=== PATIENT | female | born 1995 | race Caucasian/White ===

== ENCOUNTER 2017-08-17 23:05 | Outpatient (CLI) | payer OTHER | END 2017-08-18 03:13 | disposition home or self-care (01) | LOC: OBT 23:05 → L-D 23:05 | DX: O62.9 Abnormality of forces of labor, unspecified (principal); Z3A.26 26 weeks gestation of pregnancy | CPT/HCPCS: 76817; 76818 ==

== ENCOUNTER 2017-10-14 17:38 | Inpatient (IN) | payer MEDICAID, OTHER ==
[2017-10-14] MEDS ORDERED: IBUPROFEN 600 MG TAB PO (18:30)
[2017-10-14] MEDS ORDERED: METHYLERGONOVINE 0.2 MG INJ IM (18:30)
[2017-10-14] MEDS ORDERED: CARBOPROST 250 MCG INJ IM (18:30)
[2017-10-14] MEDS ORDERED: OXYTOCIN 30 UNITS/LR 500 ML IV ×3 (18:30)
[2017-10-14] MEDS ORDERED: LIDOCAINE 1% (MPF) 30 ML INJ INJ (18:30)
[2017-10-14] MEDS ORDERED: MISOPROSTOL 200 MCG TAB PR (18:30)
[2017-10-14] MEDS ORDERED: BUTORPHANOL 2 MG INJ IV (18:30)
[2017-10-14] MEDS: LACTATED RINGER'S 1,000 ML IV (18:35)
[2017-10-14] MEDS: AMPICILLIN 2 GM/NS (PMX) 100 ML IV (18:37)
[2017-10-14 18:46] LABS: ADD MAN DIFF? NO
[2017-10-14 18:49] LABS: WHITE BLOOD COUNT 8.7 10^3/ul (4.8-10.8)
[2017-10-14 18:49] LABS: BASOPHILS % 0.2 % (0.0-2.0); EOSINOPHILS # 0.1 10^3/ul (0.0-0.5); HEMATOCRIT 29.9 % (37.0-47.0); HEMOGLOBIN 9.8 g/dl (12.0-16.0); LYMPHOCYTES # 2.3 10^3/ul (0.8-2.9); LYMPHOCYTES % 26.8 % (15.0-51.0); MEAN CORPUSCULAR HEMOGLOBIN 27.7 pg (29.0-33.0); MEAN CORPUSCULAR HGB CONC 32.8 g/dl (32.0-37.0); MEAN CORPUSCULAR VOLUME 84.5 fl (82.0-101.0); MEAN PLATELET VOLUME 11.7 fl (7.4-10.4); MONOCYTE # 0.4 10^3/ul (0.3-0.9); MONOCYTES % 4.9 % (0.0-11.0); NEUTROPHIL # 5.8 10^3/ul (1.6-7.5); NEUTROPHILS % 66.6 % (39.0-77.0); PLATELET COUNT 230 10^3/UL (140-415); RED BLOOD COUNT 3.54 10^6/ul (4.20-5.40)
[2017-10-14 19:09] LABS: INR 0.96; PARTIAL THROMBOPLASTIN TIME 24.8 Sec (25.0-35.0); PROTIME 12.9 Sec (11.9-14.9)
[2017-10-14 20:07] LABS: HEPATITIS B SURFACE ANTIGEN NEGATIVE (NEGATIVE)
[2017-10-14] MEDS: AMPICILLIN 1 GM/NS (PMX) 50 ML IV (23:29)
[2017-10-15] MEDS: LACTATED RINGER'S 1,000 ML IV ×3 (03:03→18:26)
[2017-10-15] MEDS: AMPICILLIN 1 GM/NS (PMX) 50 ML IV ×6 (03:03→22:04)
[2017-10-15] MEDS: BETAMET NA PHOS/AC(6 MG/ML) 5ML INJ IM (10:35)
[2017-10-15] MEDS: MAGNESIUM SULFATE 4 GM/100 ML 100 ML IV (10:38)
[2017-10-15] MEDS: MAGNESIUM SULFATE 20 GM/500 ML 500 ML IV ×2 (11:22→21:48)
[2017-10-15 11:43] LABS: ADD UMIC YES; UR ASCORBIC ACID NEGATIVE (NEGATIVE); UR BACTERIA FEW /HPF (NONE SEEN); UR BILIRUBIN (Dip) NEGATIVE (NEGATIVE); UR BLOOD (Dip) NEGATIVE (NEGATIVE); UR CLARITY CLEAR (CLEAR); UR COLOR YELLOW (YELLOW); UR GLUCOSE (Dip) NEGATIVE (NEGATIVE); UR KETONES (Dip) NEGATIVE (NEGATIVE); UR LEUKOCYTE ESTERASE (Dip) 1+ Leu/ul (NEGATIVE); UR NITRITE (Dip) NEGATIVE (NEGATIVE); UR RBC 0 /HPF (0-5); UR SPECIFIC GRAVITY (Dip) 1.014 (1.003-1.030); UR SQUAMOUS EPITHELIAL CELL FEW /HPF (FEW); UR TOTAL PROTEIN (Dip) NEGATIVE (NEGATIVE); UR UROBILINOGEN (Dip) NEGATIVE (NEGATIVE); UR WBC 5 /HPF (0-5)
[2017-10-16 01:34] LABS: MAGNESIUM 5.2 mg/dl (1.7-2.5)
[2017-10-16] MEDS: LACTATED RINGER'S 1,000 ML IV ×3 (02:00→23:06)
[2017-10-16] MEDS: AMPICILLIN 1 GM/NS (PMX) 50 ML IV ×6 (02:17→22:10)
[2017-10-16 07:00] LABS: MAGNESIUM 5.5 mg/dl (1.7-2.5)
[2017-10-16] MEDS: MAGNESIUM SULFATE 20 GM/500 ML 500 ML IV ×2 (08:57→19:34)
[2017-10-16] MEDS: BETAMET NA PHOS/AC(6 MG/ML) 5ML INJ IM (10:36)
[2017-10-16 12:56] LABS: MAGNESIUM 5.1 mg/dl (1.7-2.5)
[2017-10-16 18:58] LABS: MAGNESIUM 5.2 mg/dl (1.7-2.5)
[2017-10-17 01:22] LABS: MAGNESIUM 5.6 mg/dl (1.7-2.5)
[2017-10-17] MEDS: AMPICILLIN 1 GM/NS (PMX) 50 ML IV (02:08)
[2017-10-17] MEDS: MAGNESIUM SULFATE 20 GM/500 ML 500 ML IV (05:51)
[2017-10-17 08:11] LABS: MAGNESIUM 5.2 mg/dl (1.7-2.5)
[2017-10-17 15:15] LABS: RAPID PLASMA REAGIN NONREACTIVE (NR)
== END 2017-10-17 14:26 | disposition home or self-care (01) | DRG 778 ==
LOC: OBT 17:38 → L-D 17:39 → OBT 17:45 → L-D 17:45
PROVIDERS: Obstetrics & Gynecology
DX: O60.03 Preterm labor without delivery, third trimester (principal); Z3A.35 35 weeks gestation of pregnancy
CPT/HCPCS: 76815; 76817; 76818; 81001; 83735; 85025; 85610; 85730; 86592; 86850; 86900; 86901; 87340

== ENCOUNTER 2017-10-31 00:15 | Outpatient (CLI) | payer OTHER, MEDICAID ==
[2017-10-31] MEDS: LACTATED RINGER'S 500 ML IV (01:25)
[2017-10-31] MEDS ORDERED: LACTATED RINGER'S 1,000 ML IV (02:30)
[2017-10-31] MEDS ORDERED: HYDROCODONE/APAP (5/325) TAB PO (04:00)
== END 2017-10-31 04:25 | disposition home or self-care (01) ==
LOC: OBT 00:15 → L-D 00:17 → OBT 04:25
DX: O62.9 Abnormality of forces of labor, unspecified (principal); Z3A.37 37 weeks gestation of pregnancy
CPT/HCPCS: 36415; 76815; 96360; 96361

== ENCOUNTER 2017-11-03 23:40 | Inpatient (IN) | payer OTHER, MEDICAID ==
[2017-11-04] MEDS ORDERED: IBUPROFEN 600 MG TAB PO (00:30)
[2017-11-04] MEDS ORDERED: LIDOCAINE 1% (MPF) 30 ML INJ INJ (00:30)
[2017-11-04] MEDS ORDERED: BUTORPHANOL 2 MG INJ IV (00:30)
[2017-11-04] MEDS ORDERED: OXYTOCIN 30 UNITS/LR 500 ML IV ×3 (00:30→22:00)
[2017-11-04] MEDS ORDERED: CARBOPROST 250 MCG INJ IM ×2 (00:30→22:00)
[2017-11-04] MEDS: AMPICILLIN 2 GM/NS (PMX) 100 ML IV (00:47)
[2017-11-04] MEDS: LACTATED RINGER'S 1,000 ML IV* ×3 (00:47→17:52)
[2017-11-04 01:00] LABS: ADD MAN DIFF? NO
[2017-11-04 01:05] LABS: WHITE BLOOD COUNT 7.9 10^3/ul (4.8-10.8)
[2017-11-04 01:05] LABS: BASOPHILS % 0.1 % (0.0-2.0); EOSINOPHILS # 0.2 10^3/ul (0.0-0.5); EOSINOPHILS % 2.2 % (0.0-7.0); HEMOGLOBIN 10.2 g/dl (12.0-16.0); LYMPHOCYTES # 2.3 10^3/ul (0.8-2.9); LYMPHOCYTES % 28.9 % (15.0-51.0); MEAN CORPUSCULAR HGB CONC 32.9 g/dl (32.0-37.0); MEAN PLATELET VOLUME 11.6 fl (7.4-10.4); MONOCYTE # 0.5 10^3/ul (0.3-0.9); MONOCYTES % 6.9 % (0.0-11.0); NEUTROPHIL # 4.8 10^3/ul (1.6-7.5); NEUTROPHILS % 61.3 % (39.0-77.0); PLATELET COUNT 224 10^3/UL (140-415); RED BLOOD COUNT 3.78 10^6/ul (4.20-5.40)
[2017-11-04 01:25] LABS: INR 0.91; PARTIAL THROMBOPLASTIN TIME 25.2 Sec (25.0-35.0); PROTIME 12.3 Sec (11.9-14.9)
[2017-11-04 02:04] LABS: HEPATITIS B SURFACE ANTIGEN NEGATIVE (NEGATIVE)
[2017-11-04] MEDS: AMPICILLIN 1 GM/NS (PMX) 50 ML IV ×5 (06:22→20:30)
[2017-11-04] MEDS: OXYTOCIN 30 UNITS/LR 500 ML IV ×4 (09:11→19:50)
[2017-11-04 15:23] LABS: RAPID PLASMA REAGIN NONREACTIVE (NR)
[2017-11-04] MEDS ORDERED: FENTAnyl 2MCG/ML-ROPIV 0.2% 100 ML (17:49)
[2017-11-04] MEDS: MISOPROSTOL 200 MCG TAB PR (19:21)
[2017-11-04] MEDS: METHYLERGONOVINE 0.2 MG INJ IM (19:22)
[2017-11-04] MEDS ORDERED: FENTAnyl 2MCG/ML-ROPIV 0.2% 100 ML BAG EPI (20:00)
[2017-11-04] MEDS ORDERED: NALOXONE (0.4 MG/ML) INJ IV (20:00)
[2017-11-04] MEDS ORDERED: DIPHENHYDRAMINE 50 MG INJ IV (20:00)
[2017-11-04] MEDS ORDERED: ONDANSETRON 4 MG INJ IV ×2 (20:00→22:00)
[2017-11-04] MEDS ORDERED: METHYLERGONOVINE 0.2 MG TAB PO (22:00)
[2017-11-04] MEDS ORDERED: NACL 0.9% 3 ML SYG IV (22:00)
[2017-11-04] MEDS ORDERED: HYDROCODONE/APAP (5/325) TAB PO (22:00)
[2017-11-04] MEDS ORDERED: MISOPROSTOL 200 MCG TAB PR (22:00)
[2017-11-04] MEDS ORDERED: ZOLPIDEM 5 MG TAB PO (22:00)
[2017-11-04] MEDS ORDERED: ACETAMINOPHEN 325 MG TAB PO (22:00)
[2017-11-04] MEDS ORDERED: DIPHENHYDRAMINE 25 MG CAP PO (22:00)
[2017-11-04] MEDS ORDERED: METHYLERGONOVINE 0.2 MG INJ IM (22:00)
[2017-11-04] MEDS: LANOLIN 7 GM TUBE TOP (23:59)
[2017-11-04] MEDS: WITCH HAZEL/GLYCERIN PAD PR (23:59)
[2017-11-04] MEDS: IBUPROFEN 600 MG TAB PO (23:59)
[2017-11-05] MEDS: OXYTOCIN 30 UNITS/LR 500 ML IV (00:27)
[2017-11-05] MEDS: IBUPROFEN 600 MG TAB PO ×4 (05:09→23:37)
[2017-11-05 07:34] LABS: HEMATOCRIT 23.8 % (37.0-47.0); HEMOGLOBIN 7.8 g/dl (12.0-16.0)
[2017-11-05] MEDS: SENNA/DOCUSATE NA (8.6MG/50MG) TAB PO ×2 (09:33→21:46)
[2017-11-06] MEDS: IBUPROFEN 600 MG TAB PO ×2 (05:29→12:00)
[2017-11-06] MEDS: MEASLES,MUMPS,RUBELLA VACCINE INJ SC* (09:00)
[2017-11-06] MEDS: DIPHTH/TET/ACEL PERTUSS (ADULT) 0.5 ML VIAL IM* (09:00)
[2017-11-06] MEDS: VARICELLA VACCINE LIVE/PF 1,350 UNIT/0.5 ML ML SC* (09:00)
[2017-11-06] MEDS: SENNA/DOCUSATE NA (8.6MG/50MG) TAB PO (10:02)
== END 2017-11-06 14:10 | disposition home or self-care (01) | DRG 775 ==
LOC: OBT 23:40 → L-D 23:40 → PP1 11-04 22:03
PROVIDERS: Obstetrics & Gynecology
PROC: 10E0XZZ Delivery of Products of Conception, External Approach (ICD-10-PCS; principal; 2017-11-04)
PROC: 0KQM0ZZ Repair Perineum Muscle, Open Approach (ICD-10-PCS; 2017-11-04)
PROC: 0UQMXZZ Repair Vulva, External Approach (ICD-10-PCS; 2017-11-04)
PROC: 4A1HXCZ Monitoring of Products of Conception, Cardiac Rate, External Approach (ICD-10-PCS; 2017-11-04)
DX: O66.0 Obstructed labor due to shoulder dystocia (principal); O70.1 Second degree perineal laceration during delivery; O71.82 Other specified trauma to perineum and vulva; Z37.0 Single live birth; Z3A.40 40 weeks gestation of pregnancy
CPT/HCPCS: 36415; 62319; 85014; 85018; 85025; 85610; 85730; 86592; 86850; 86900; 86901; 87340